=== PATIENT | female | born 1995 | race Caucasian/White ===

== ENCOUNTER 2016-11-12 19:38 | Emergency (ER) | payer BC, OTHER ==
[~2016-11-12] VITALS: Ht 167.6 cm; Wt 58.0 kg
[~2016-11-12 19:38] MED LIST: MULT-506 PO; PRLSR20 PO; RANI150T3 PO
[2016-11-12 19:48] VITALS: TEMP 36.8; Ht 167.6 cm; Wt 58.0 kg
--- NOTE | 2016-11-12 20:31 | DIAGNOSTIC IMAGING REPORT ---
RIGHT ANKLE 3 VIEWS CLINICAL HISTORY: Right ankle pain and swelling. FINDINGS: 3 views of the right ankle are obtained. No prior studies are available for comparison at the time of dictation. The skeletal structures are well mineralized. No fracture is seen. The ankle mortise is intact. There is a joint effusion. Soft tissue edema is present around the ankle. IMPRESSION: Joint effusion and soft tissue swelling. No right ankle fracture is seen. Electronically signed by: Evelio Morataya M.D. 11/12/2016 8:29 PM Dictated Date/Time: 11/12/2016 8:28 PM
[2016-11-12] MEDS ORDERED: ACETAMINOPHEN 500 MG TAB PO STA (20:35)
[2016-11-12] MEDS ORDERED: TRAMADOL HCL 50 MG HOME PACK PO ONE (20:45)
[2016-11-12 20:53] VITALS: BP 119/71; PULSE 76; O2SAT 98
--- NOTE | 2016-11-13 00:51 | EMERGENCY ROOM VISIT NOTE ---
History First contact with patient: 20:34 Chief Complaint: ANKLE PAIN Stated Complaint: SWOLLEN/PAINFUL R ANKLE History of Present Illness The patient is a 21 year old female who presents to the Emergency Room with complaints of right ankle pain after twisting her ankle playing football tonight with friends. The patient now reports pain rated an 8 out of 10 with weightbearing. She denies any pain extending into the leg or knee. Denies paresthesias or numbness of the right foot or toes, and denies any prior history of right ankle injury. Review of Systems 10 system review was performed and was negative except for pertinent positives and negatives as indicated in history of present illness Past Medical/Surgical History Medical Problems: (1) No significant past medical history (2) No significant past medical history Surgical Problems: (1) History of esophagogastroduodenoscopy (EGD) (2) No history of previous surgery Medical Problems: (1) Anemia (2) IBS (irritable bowel syndrome) Surgical Problems: (1) History of colonoscopy (2) History of esophagogastroduodenoscopy (EGD) (3) History of esophagogastroduodenoscopy (EGD) (4) No history of previous surgery Family History No significant family history Unremarkable Social History Smoking Status: Never Smoker Alcohol Use: occasionally Drug Use: marijuana Marital Status: single Occupation Status: [employer] student Current/Historical Medications Scheduled Multivitamin (Multivitamin), 1 TAB PO QAM Allergies Coded Allergies: Amoxicillin (Verified Allergy, Mild, RASH, N/V, 11/12/16) Naproxen (Verified Allergy, Mild, RASH, N/V, 11/12/16) Physical Exam Vital Signs Date Time Temp Pulse Resp B/P (MAP) Pulse Ox O2 Delivery O2 Flow Rate FiO2 11/12/16 20:53 76 18 119/71 98 11/12/16 19:48 36.8 72 18 124/69 97 Room Air Pain Rating (0-10): 4.0 Physical Exam CONSTITUTIONAL: Healthy and well nourished. Alert and oriented X 3 with positive affect. Patient does not appear in any acute distress. HEENT: Normocephalic, atraumatic. Pupils equal, round and reactive. NECK: Full active range of motion without discomfort. MUSCULOSKELETAL: Examination of the right ankle shows mild lateral edema. Negative anterior draw. No focal tenderness of the medial malleolus or deltoid ligament. No tenderness to palpation through the dorsal midfoot, metatarsals, phalanges, calcaneus or Achilles tendon. Pedal pulses are intact. INTEGUMENTARY: No rash or other significant dermatologic conditions noted. NEUROLOGIC: Right foot and toes are sensory intact. Medical Decision & Procedures ER Provider Diagnostic Interpretation: My interpretation of right ankle x-rays does not show any acute fractures, dislocation or ankle mortise asymmetry. Radiologist report is as follows: RIGHT ANKLE 3 VIEWS CLINICAL HISTORY: Right ankle pain and swelling. FINDINGS: 3 views of the right ankle are obtained. No prior studies are available for comparison at the time of dictation. The skeletal structures are well mineralized. No fracture is seen. The ankle mortise is intact. There is a joint effusion. Soft tissue edema is present around the ankle. IMPRESSION: Joint effusion and soft tissue swelling. No right ankle fracture is seen. Medications Administered Medications (Trade) Dose Ordered Sig/Lor Route Start Time Stop Time Status Last Admin Dose Admin Acetaminophen (Tylenol Tab) 1,000 mg NOW STAT PO 11/12/16 20:35 11/12/16 20:37 DC 11/12/16 20:46 1,000 MG Tramadol HCl (Ultram Home Pack) 1 homepack UD ONCE PO 11/12/16 20:45 11/12/16 20:46 DC 11/12/16 20:46 1 HOMEPACK ED Course Patient history and physical exam were performed. Nurse's notes were reviewed. Vital signs were reviewed and normal. The patient had gone to x-ray prior to my exam. X-rays of the right ankle were normal. The patient was encouraged to ice and elevate the ankle for swelling and pain. Tylenol as needed for pain. The patient was administered Tylenol 1 g while in the emergency department, and received a home pack for Ultram as needed for breakthrough pain overnight. As provided additional verbal and written ankle sprain instructions. The patient was also dispensed crutches. She was instructed to follow-up with orthopedics if symptoms are not improving within the next week. The patient was happy with plan of care, voiced understanding of all discharge instructions, and rated her pain a 5 out of 10 at the time of discharge. Medical Decision Impression Primary Impression: Right ankle sprain Departure Information Dispostion Home / Self-Care Condition FAIR Referrals Jono Garcia D.O. Forms HOME CARE DOCUMENTATION FORM, IMPORTANT VISIT INFORMATION Patient Instructions [facility] Additional Instructions Ice and elevate ankle for swelling and pain. Perform range of motion exercises to prevent stiffness. No weight on right foot for the next 3 days - use crutches. After 3 days, and continuing to use crutches, slowly apply weight as tolerated - NO LIMPING. Ibuprofen 800 mg and/or Tylenol 1000 mg every 8 hours. You may also alternate these medications for more effective pain relief: Ibuprofen --4 HRS--> Tylenol --4 HRS--> ibuprofen --4 HRS--> Tylenol .... Take Ultram 50 mg every 6 hours if needed for additional pain relief. You have been provided a home pack of the Ultram. If ankle has not improved within 5-7 days, follow-up with [facility] (Dr. Garcia) for further reevaluation. Problem Qualifiers Primary Impression: Right ankle sprain Encounter type: initial encounter Involved ligament of ankle: unspecified ligament Qualified Codes: S93.401A - Sprain of unspecified ligament of right ankle, initial encounter
== END 2016-11-12 20:54 | disposition home or self-care (01) ==
LOC: C.EDB 19:39 → C.EDD 20:54
DX: S93.401A Sprain of unspecified ligament of right ankle, initial encounter (principal); X50.9XXA Other and unspecified overexertion or strenuous movements or postures, initial encounter; D64.9 Anemia, unspecified; K58.9 Irritable bowel syndrome, unspecified; F12.90 Cannabis use, unspecified, uncomplicated

== ENCOUNTER → 2017-06-16 | Outpatient (CLI) | payer OTHER ==
[~2017-06-16] MED LIST changes: -PRLSR20 PO; -RANI150T3 PO
== END | disposition home or self-care (01) ==
LOC: C.LABSPEC 14:47
PROVIDERS: ATTEND Physician Assistant
DX: Z12.4 Encounter for screening for malignant neoplasm of cervix (principal)

== ENCOUNTER → 2017-06-16 | Outpatient (CLI) | payer OTHER | END | disposition home or self-care (01) | LOC: C.PAPS 14:04 | PROVIDERS: ATTEND Physician Assistant | DX: Z12.4 Encounter for screening for malignant neoplasm of cervix (principal); R87.612 Low grade squamous intraepithelial lesion on cytologic smear of cervix (LGSIL) ==